=== PATIENT | female | born 1930 | race Caucasian/White ===

== ENCOUNTER 2017-08-16 22:14 | Emergency (ER) | payer OTHER ==
[2017-08-16] MEDS: SOD CHLORIDE 0.9% 1,000 ML IV (23:01)
[2017-08-16 23:30] LABS: ADD MAN DIFF? NO
[2017-08-16 23:34] LABS: WHITE BLOOD COUNT 11.7 10^3/ul (4.8-10.8)
[2017-08-16 23:34] LABS: BASOPHILS % 0.3 % (0.0-2.0); EOSINOPHILS % 0.1 % (0.0-7.0); HEMATOCRIT 26.6 % (37.0-47.0); HEMOGLOBIN 8.3 g/dl (12.0-16.0); LYMPHOCYTES % 8.8 % (15.0-51.0); MEAN CORPUSCULAR HGB CONC 31.2 g/dl (32.0-37.0); MONOCYTE # 1.1 10^3/ul (0.3-0.9); NEUTROPHIL # 9.5 10^3/ul (1.6-7.5); NEUTROPHILS % 81.4 % (39.0-77.0); PLATELET COUNT 452 10^3/UL (140-415); RED BLOOD COUNT 2.77 10^6/ul (4.20-5.40); RED CELL DISTRIBUTION WIDTH 17.3 % (11.5-14.5)
[2017-08-17 00:26] LABS: ALANINE AMINOTRANSFERASE 13 IU/L (13-69); ALBUMIN 3.1 g/dl (3.3-4.9); ALBUMIN/GLOBULIN RATIO 0.72; ALKALINE PHOSPHATASE 107 IU/L (42-121); ANION GAP 17 (8-16); ASPARTATE AMINO TRANSFERASE 22 IU/L (15-46); BILIRUBIN,INDIRECT 0.2 mg/dl (0-1.1); BILIRUBIN,TOTAL 0.2 mg/dl (0.2-1.3); BLOOD UREA NITROGEN 36 mg/dl (7-20); CALCIUM 8.9 mg/dl (8.4-10.2); CARBON DIOXIDE 24 mmol/L (21-31); CHLORIDE 107 mmol/L (97-110); CREATININE 1.22 mg/dl (0.44-1.00); GLUCOSE 109 mg/dl (70-220); LIPASE 22 U/L (23-300); POTASSIUM 4.8 mmol/L (3.5-5.1); SODIUM 143 mmol/L (135-144); TOTAL PROTEIN 7.4 g/dl (6.1-8.1)
[2017-08-17 01:09] LABS: ADD UMIC YES; UR AMORPHOUS CRYSTAL FEW /HPF (NONE SEEN); UR ASCORBIC ACID 20 mg/dL (NEGATIVE); UR BACTERIA FEW /HPF (NONE SEEN); UR BILIRUBIN (Dip) NEGATIVE (NEGATIVE); UR BLOOD (Dip) NEGATIVE (NEGATIVE); UR CLARITY SLIGHTLY CLOUDY (CLEAR); UR COLOR AMBER (YELLOW); UR GLUCOSE (Dip) NEGATIVE (NEGATIVE); UR KETONES (Dip) TRACE mg/dL (NEGATIVE); UR LEUKOCYTE ESTERASE (Dip) NEGATIVE Leu/ul (NEGATIVE); UR NITRITE (Dip) NEGATIVE (NEGATIVE); UR RBC 2 /HPF (0-5); UR SPECIFIC GRAVITY (Dip) 1.023 (1.003-1.030); UR SQUAMOUS EPITHELIAL CELL FEW /HPF (FEW); UR TOTAL PROTEIN (Dip) 2+ mg/dl (NEGATIVE); UR UROBILINOGEN (Dip) 1+ mg/dL (NEGATIVE); UR WBC 4 /HPF (0-5)
[2017-08-17] MEDS: CEFEPIME 1GM/50 ML (PMX) 50 ML IVPB (01:45)
[2017-08-17] MEDS: DIAZEPAM 5 MG/ML SYG IV (02:03)
[2017-08-17] MEDS: metroNIDAZOLE 500 MG/NS (PMX) 100 ML IVPB (02:39)
[2017-08-17] MEDS: LEVOFLOXACIN 500MG/D5W (PMX) 100 ML IVPB (02:40)
== END 2017-08-17 05:45 | disposition short-term general hospital (02) ==
LOC: E/R 08-17 05:45
DX: R40.4 Transient alteration of awareness (principal); J18.1 Lobar pneumonia, unspecified organism; N28.9 Disorder of kidney and ureter, unspecified; I50.9 Heart failure, unspecified; I10 Essential (primary) hypertension; Z85.821 Personal history of Merkel cell carcinoma; Z79.82 Long term (current) use of aspirin; Z79.01 Long term (current) use of anticoagulants
CPT/HCPCS: 36415; 71045; 80053; 81001; 83690; 85025; 87086; 96374; 96375; 99285-25